=== PATIENT | female | born 2000 | race Caucasian/White ===

== ENCOUNTER 2022-04-04 20:24 | Inpatient (IN) ==
[2022-04-04] MEDS ORDERED: LACTATED RINGERS 500 ML IV PRN (21:41)
[2022-04-04] MEDS ORDERED: CARBOPROST TROMETHAMINE 250 MCG/ML AMP IM PRN (21:41)
[2022-04-04] MEDS ORDERED: BUTORPHANOL 2 MG/ML VIAL IV PRN (21:41)
[2022-04-04] MEDS ORDERED: miSOPROStoL 200 MCG TABLET RECTAL PRN (21:41)
[2022-04-04] MEDS ORDERED: ONDANSETRON 4 MG/2 ML VIAL IV PRN (21:41)
[2022-04-04] MEDS ORDERED: OXYTOCIN/LR 20 UNIT/1,000 ML BAG IV PRN (21:41)
[2022-04-04] MEDS ORDERED: METHYLERGONOVINE 0.2 MG/1 ML AMP IM PRN (21:41)
[2022-04-04] MEDS ORDERED: LACTATED RINGERS 1,000 ML IV PRN (21:41)
[2022-04-04] MEDS ORDERED: TRANEXAMIC ACID 1,000 MG in SODIUM CHLORIDE 0.9% 100 ML IV PRN (21:41)
[2022-04-04 22:15] LABS: Basophils # 0.1 10*3/uL (0.0-0.2); Basophils % 0.5 % (0.0-0.8); Eosinophils # 0.4 10*3/uL (0.0-0.87); Eosinophils % 2.6 % (0.00-10.9); Hemoglobin 9.8 GM/DL (12.0-16.0); Immature Granulocytes % 1.3 %; Immature Granulocytes Absolute 0.21 #; Lymphocytes # 2.8 10*3/uL (1.4-4.0); Lymphocytes % 16.9 % (21.3-54.2); Mean Corpuscular HGB Conc 31.6 GM/DL (32-36); Mean Corpuscular Volume 84.7 FL (87-102); Mean Platelet Volume 9.4 FL (9.6-12.0); Monocytes # 1.3 10*3/uL (0.11-0.8); Monocytes % 8.2 % (1.7-12.7); Neutrophils % 70.5 % (38.7-73.9); Platelet Count 477 T/CUMM (130-400); Red Blood Count 3.66 MC/CUMM (3.8-5.5); Red Cell Distribution Width 14.7 % (9.3-17.3); White Blood Count 16.3 T/CUMM (4-12)
[2022-04-04 22:36] LABS: Albumin 2.7 G/DL (3.4-5.0); Bilirubin,Total 0.4 MG/DL (0.20-1.00); Calcium 8.8 MG/DL (8.5-10.1); Osmolality,Calculated 272.7 MOS/KG (273-304); Potassium 3.7 MMOL/L (3.5-5.1)
[2022-04-04] MEDS: AMPICILLIN INJ 2,000 MG in SODIUM CHLORIDE 0.9% 100 ML IV SCH (23:57)
[2022-04-05] MEDS: AMPICILLIN INJ 2,000 MG in SODIUM CHLORIDE 0.9% 100 ML IV SCH (06:19)
[2022-04-05] MEDS ORDERED: hydrOXYzine HCL 25 MG/1 ML VIAL IM PRN (07:20)
[2022-04-05] MEDS ORDERED: NALOXONE 0.4 MG/ML VIAL IV PRN (07:20)
[2022-04-05] MEDS ORDERED: LACTATED RINGERS 1,000 ML IV ONE (07:20)
[2022-04-05] MEDS ORDERED: FAMOTIDINE 20 MG/2 ML VIAL IV ONE (07:20)
[2022-04-05] MEDS ORDERED: PROMETHAZINE 25 MG/1 ML VIAL IM ONE (07:20)
[2022-04-05] MEDS ORDERED: ePHEDrine 50 MG/ML VIAL IV PRN (07:20)
[2022-04-05] MEDS ORDERED: diphenhydrAMINE 50 MG/1 ML VIAL IV PRN ×2 (07:20)
[2022-04-05] MEDS ORDERED: ONDANSETRON 4 MG/2 ML VIAL IV ONE (07:20)
[2022-04-05] MEDS ORDERED: CITRIC ACID/SODIUM CITRATE 30 ML UDCUP PO ONE (07:20)
[2022-04-05] MEDS ORDERED: fentaNYL 2 MCG/ROPIV 0.2% EPID 100 ML EPIDURAL ONE (07:24)
[2022-04-05] MEDS ORDERED: ePHEDrine 50 MG/ML VIAL ONE (07:24)
[2022-04-05] MEDS ORDERED: fentaNYL 2 MCG/ROPIV 0.2% EPID 100 ML EPIDURAL SCH (07:30)
[2022-04-05] MEDS ORDERED: OXYTOCIN/LR 20 UNIT/1,000 ML BAG IV SCH ×2 (07:30→08:00)
[2022-04-05] MEDS ORDERED: LACTATED RINGERS 1,000 ML IV SCH ×2 (07:30)
[2022-04-05 09:13] LABS: Bilirubin,Urine Negative (Negative); Blood, Urine Trace mg/dL (Negative); Glucose,Urine (UA) Negative (Negative); Ketones,Urine Negative (Negative); Mucus,Urine Occasional /LPF (Occasional); Nitrite,Urine Negative (Negative); Protein,Urine Negative (Negative); RBC,Urine 4 /HPF (0-4); Squamous Epithelial Cell,Urine Occasional /HPF (0-10); Urine Appearance Clear (Clear); Urine Color Yellow (Yellow); Urine Urobilinogen 0.2 eU/dL (<2.0)
[2022-04-05] MEDS ORDERED: TRANEXAMIC ACID 1,000 MG/10 ML VIAL ONE (10:08)
[2022-04-05] MEDS ORDERED: SODIUM CHLORIDE 0.9% 0 ML IV ONE (10:08)
[2022-04-05] MEDS ORDERED: miSOPROStoL 200 MCG TABLET ONE (10:08)
[2022-04-05] MEDS ORDERED: CARBOPROST TROMETHAMINE 250 MCG/ML AMP IM ONE (10:08)
[2022-04-05] MEDS ORDERED: METHYLERGONOVINE 0.2 MG/1 ML AMP ONE (10:08)
[2022-04-05] MEDS ORDERED: AMPICILLIN INJ 1,000 MG in SODIUM CHLORIDE 0.9% 100 ML IV SCH (11:00)
[2022-04-05 11:15] LABS: Cord Arterial Blood HCO3 20.8 MMOL/L
[2022-04-05 11:18] LABS: Cord Venous Blood HCO3 22.6 MMOL/L; Cord Venous Blood PCO2 48.3 MMHG; Cord Venous Blood PO2 21.7
[2022-04-05] MEDS ORDERED: MEASLES/MUMPS/RUBELLA VACCINE 0.5 ML VIAL SUBCUT ONE (13:29)
[2022-04-05] MEDS ORDERED: ONDANSETRON 4 MG/2 ML VIAL IV PRN (13:29)
[2022-04-05] MEDS ORDERED: DIPH/TET/ACEL PERT BOOSTER VACCINE 0.5 ML VIAL IM ONE (13:29)
[2022-04-05] MEDS ORDERED: LANOLIN 50% CREAM 0.3 OZ TUBE TOP PRN (13:29)
[2022-04-05] MEDS ORDERED: OXYTOCIN/LR 20 UNIT/1,000 ML BAG IV ONE (13:29)
[2022-04-05] MEDS ORDERED: BISACODYL 10 MG SUPP RECTAL PRN (13:29)
[2022-04-05] MEDS ORDERED: RHO(D) IMMUNE GLOBULIN 300 MCG SYRINGE IM ONE (13:29)
[2022-04-05] MEDS ORDERED: HYDROCORTISONE 2.5% RECTAL CREAM 30 GM TUBE TOP PRN (13:29)
[2022-04-05] MEDS ORDERED: ACETAMINOPHEN 325 MG TABLET PO PRN (13:29)
[2022-04-05] MEDS ORDERED: oxyCODONE/ACETAMINOPHEN 5-325 MG TABLET PO PRN ×2 (13:29)
[2022-04-05] MEDS ORDERED: BENZOCAINE 20%/MENTHOL 0.5% SPRAY 56 GM CAN TOP PRN (13:29)
[2022-04-05] MEDS ORDERED: WITCH HAZEL PADS 100/JAR TOP PRN (13:29)
[2022-04-05] MEDS: IBUPROFEN 800 MG TABLET PO PRN ×2 (15:05→21:22)
[2022-04-05] MEDS: DOCUSATE SODIUM 100 MG CAPSULE PO SCH (21:23)
[2022-04-06] MEDS: IBUPROFEN 800 MG TABLET PO PRN ×2 (05:26→22:25)
[2022-04-06 07:29] LABS: Basophils # 0.1 10*3/uL (0.0-0.2); Basophils % 0.4 % (0.0-0.8); Eosinophils # 0.5 10*3/uL (0.0-0.87); Eosinophils % 3.2 % (0.00-10.9); Hematocrit 29.2 VOL% (35.7-47.0); Hemoglobin 9.3 GM/DL (12.0-16.0); Immature Granulocytes Absolute 0.15 #; Lymphocytes % 19.7 % (21.3-54.2); Mean Corpuscular HGB Conc 31.8 GM/DL (32-36); Mean Corpuscular Volume 85.9 FL (87-102); Mean Platelet Volume 9.7 FL (9.6-12.0); Monocytes # 1.2 10*3/uL (0.11-0.8); Monocytes % 8.1 % (1.7-12.7); Neutrophils % 67.6 % (38.7-73.9); Platelet Count 435 T/CUMM (130-400); Red Cell Distribution Width 14.8 % (9.3-17.3); White Blood Count 15.2 T/CUMM (4-12)
[2022-04-06] MEDS: IRON (CARBONYL)/VIT C/B12/FA TABLET PO SCH (09:16)
[2022-04-06] MEDS: DOCUSATE SODIUM 100 MG CAPSULE PO SCH ×2 (09:16→21:07)
[2022-04-07] MEDS: IBUPROFEN 800 MG TABLET PO PRN (06:33)
[2022-04-07 07:42] VITALS: BP 108/72
[2022-04-07] MEDS: DOCUSATE SODIUM 100 MG CAPSULE PO SCH (09:03)
[2022-04-07] MEDS: IRON (CARBONYL)/VIT C/B12/FA TABLET PO SCH (09:03)
== END 2022-04-07 12:50 | disposition home or self-care (01) | DRG 560 ==
LOC: N.LDOUT 20:24 → N.LD 20:28 → N.OB 04-05 13:15
PROVIDERS: ADMIT Specialist; ATTEND Specialist